=== PATIENT | female | born 1995 | race Caucasian/White ===

== ENCOUNTER 2019-06-22 17:00 | Emergency (ER) | payer BC ==
[2019-06-22] MEDS ORDERED: SODIUM CHLORIDE 0.9% 1000ML 1,000 ML IVS ONE ×2 (17:01→17:29)
[2019-06-22] MEDS ORDERED: VECURONIUM BROMIDE 10 MG VIAL IV ONE (17:01)
[2019-06-22] MEDS ORDERED: ETOMIDATE INJECTION 2 MG/ML 20ML VIAL IV ONE (17:01)
[2019-06-22] MEDS ORDERED: SUCCINYLCHOLINE CHLORIDE 200 MG/10 ML VIAL ONE (17:05)
[2019-06-22] MEDS ORDERED: MIDAZOLAM INJ 5 MG/5 ML VIAL ONE (17:08)
[2019-06-22] MEDS ORDERED: FAMOTIDINE IV PREMIX 20 MG in PREMIX BAG 1 BAG IVPB ONE (17:27)
[2019-06-22] MEDS ORDERED: methylPREDNISolone SODIUM SUC 125 MG/2 ML VIAL IV ONE (17:27)
[2019-06-22] MEDS ORDERED: SODIUM CHLORIDE 0.9% (FLUSH) 10 ML SYG IV PRN ×2 (17:28→17:29)
[2019-06-22] MEDS ORDERED: ONDANSETRON INJ 4 MG/2 ML VIAL IV ONE (17:28)
[2019-06-22] MEDS ORDERED: PIPERACILLIN/TAZOBACTAM 4.5 GM in SODIUM CHLORIDE 0.9% 100ML 100 ML IVPB ONE (17:31)
--- NOTE | 2019-06-22 17:38 | RAD ---
EXAM DESCRIPTION: XR Chest,1 View CLINICAL HISTORY: 24 years Female POST INTUBATION TECHNIQUE: One view of the chest. COMPARISON: No prior exams provided for comparison. FINDINGS: Endotracheal tube terminates at the albaro and should be retracted at least 2 cm. The right lung is hyperinflated as compared to the left. No focal airspace infiltrate, pleural effusion, or pneumothorax. Normal cardiomediastinal silhouette. IMPRESSION: Endotracheal tube terminates at the albaro and preferentially inflates the right lung. The endotracheal tube should be retracted at least 2 cm. Electronically signed by: Etelvina Stafford MD 06/22/2019 5:37 PM [employer]
[2019-06-22] MEDS ORDERED: PIPERACILLIN/TAZOBACTAM 2.25 GM VIAL IVPB ONE (17:50)
[2019-06-22] MEDS ORDERED: SODIUM CHLORIDE 0.9% 100ML 100 ML IVPB ONE (17:50)
[2019-06-22] MEDS: SODIUM CHLORIDE 0.9% (FLUSH) 10 ML SYG IV PRN ×2 (18:01→19:34)
[2019-06-22 18:55] VITALS: O2SAT 98
--- NOTE | 2019-06-22 19:02 | CT ---
PROCEDURE: CTA Chest CLINICAL HISTORY: 24 years Female aspiration TECHNIQUE: Contiguous axial images obtained through the chest were obtained from the thoracic inlet to the level of the upper abdomen during the pulmonary arterial phase of intravenous contrast administration. Coronal and sagittal reformatted and oblique coronal MIP images provided. This CT exam was performed according to our departmental dose-optimization program, which includes one or more of the following dose reduction techniques: automated exposure control, adjustment of the mA and/or kV according to patient size, and/or use of iterative reconstruction technique. COMPARISON: No prior exams provided for comparison. FINDINGS: Nasogastric tube terminates in the stomach. Endotracheal tube terminates 6.6 cm above the albaro and should be advanced. There is no pulmonary embolus. The thoracic aorta is normal without aneurysm or dissection. The heart is normal in size without pericardial effusion. There is diffuse pneumomediastinum tracking into the inferior neck. No mediastinal fluid collection. No visualized airway defect. No pneumothorax or pleural effusion. Minimal dependent atelectasis and mild scattered air trapping. The lungs are otherwise clear. Scattered nonocclusive secretions in the central airways, which are otherwise clear. No acute fracture in the chest. Steatosis of the liver, which is enlarged. No acute upper abdominal or osseous abnormality. IMPRESSION: Endotracheal tube terminates 6.6 cm above the albaro and should be advanced. Diffuse pneumomediastinum without visualized airway defect. Nasogastric tube in place. No pneumothorax or pleural effusion. No other acute findings in the chest. No pulmonary embolus. Steatosis of the liver, which is enlarged. Electronically signed by: Etelvina Stafford MD 06/22/2019 7:00 PM [facility]
--- NOTE | 2019-06-22 19:13 | ED.PDOC ---
History of Present Illness - General Chief Complaint: Allergic Reaction Stated Complaint: Poss allergic reaction Time Seen by Provider: 06/22/19 17:27 - History of Present Illness Initial Comments: Pt brought by the EMS as pt was found to be unresponsive on the street beside her car , cpr was done by local people over their , however EMS found good pulse on her , her tongue was swollen and was given Epi after which she became little resposive but was desaturation , pt was brought over here where ET tube was passed and sat was maintained on the ventilator . Timing/Duration: unsure Severity: severe Improving Factors: nothing Worsening Factors: nothing Allergies/Adverse Reactions: Allergies Benzalkonium Chloride [From Spiriva Respimat] Adverse Reaction (Verified 06/22/19 17:41) Edetic Acid [From Spiriva Respimat] Adverse Reaction (Verified 06/22/19 17:41) Montelukast [From Singulair] Adverse Reaction (Verified 06/22/19 17:41) Peanut-containing Drug Products Adverse Reaction (Verified 06/22/19 17:41) Tiotropium [From Spiriva Respimat] Adverse Reaction (Verified 06/22/19 17:41) Review of Systems - Review of Systems Unable to Obtain Due To: condition, intubated, clinical condition Past Medical History (General) - Female History Patient is a Female of Child Bearing Age (10 -59 yrs old): Yes Patient : - Unknow Family Medical History - Family History Mother Family History: Unknown Living Status: Unknown Physical Exam - Physical Exam Eye Exam: bilateral normal Ears, Nose, Throat: normal ENT inspection Neck: full range of motion, normal inspection Respiratory: lungs clear, normal breath sounds, respiratory distress Cardiovascular/Chest: tachycardia Gastrointestinal/Abdominal: no organomegaly, no pulsatile mass Back Exam: normal inspection, no CVA tenderness Extremity: normal range of motion Neurologic: disoriented x 3 Skin Exam: normal color Lymphatic: no adenopathy Departure - Departure Clinical Impression: Unresponsive state, Respiratory arrest, Anaphylaxis Disposition: Transfer to Hospital Condition: Serious Departure Forms: ED Discharge - Pt. Copy, Patient Portal Self Enrollment Comments: Case d/w Dr Gomez , agreed to accept the pt
[2019-06-22] MEDS ORDERED: FAMOTIDINE IV PREMIX 50 ML IVPB ONE (19:26)
--- NOTE | 2019-06-22 19:40 | CT ---
PROCEDURE: Head CLINICAL HISTORY: 24 years Female unresponsive TECHNIQUE: Contiguous axial CT images obtained through the brain without IV contrast. Coronal and sagittal reformats also provided. This CT exam was performed according to our departmental dose-optimization program, which includes one or more of the following dose reduction techniques: automated exposure control, adjustment of the mA and/or kV according to patient size, and/or use of iterative reconstruction technique. COMPARISON: No prior exams provided for comparison. FINDINGS: The examination is significantly degraded by patient motion. Nasogastric and endotracheal tubes are noted, likely accounting for bilateral maxillary, ethmoid, and sphenoid sinusitis. The mastoid air cells are clear. No acute fracture. There is no visualized large intracranial hemorrhage, midline shift, hydrocephalus, or evidence of large acute transcortical infarction. More subtle findings cannot be completely excluded due to patient motion. IMPRESSION: No large acute intracranial abnormality. Cannot exclude more subtle abnormalities due to patient motion. Suggest reimaging once patient can remain immobile. Electronically signed by: Etelvina Stafford MD 06/22/2019 7:39 PM [facility]
[2019-06-22 19:57] VITALS: BP 149/103; TEMP 97.1
== END 2019-06-22 19:45 | disposition short-term general hospital (02) ==
LOC: ER 17:00
DX: R09.2 Respiratory arrest (principal); T78.2XXA Anaphylactic shock, unspecified, initial encounter; R40.4 Transient alteration of awareness; Z88.8 Allergy status to other drugs, medicaments and biological substances; Z91.010 Allergy to peanuts
CPT/HCPCS: 36600; 70450; 71045; 71275; 80048; 80307; 80320; 80329; 81001; 82009; 82248; 82550; 82553; 82803; 82805; 83605; 83880; 84484; 84703; 85025; 85379; 85610; 85730; 87040; 93005; 94003; 94760; 94770; J0330; J2250; J2405; J2543; J2930; J3490; J7030; J7050